=== PATIENT | male | born 1975 | race Caucasian/White ===

== ENCOUNTER 2021-01-19 08:58 | Emergency (ER) | payer BC, SELFPAY ==
[2021-01-19 09:05] VITALS: BP 120/74; PULSE 67; RESP 18; TEMP 36.8; O2SAT 98; BMI 27.9
--- NOTE | 2021-01-19 09:27 | HMH.EDUTC ---
[facility] [place] Disposition Clinical Impression: COVID-19 virus test result unknown Sciatica Qualifiers: Laterality: right Qualified Code(s): M54.31 - Sciatica, right side Disposition: Home, Self-Care Condition on Discharge: Good Instructions: DI for Sciatica, DI for Back Pain With Sciatica Additional Instructions: covid swab was sent to lab, call later today for results. self isolate until test results are known to be negative follow up with pcp if symptoms worsen or does not improve return of be seen in ed Prescriptions: predniSONE [Prednisone 20mg Tab] 20 mg PO BID #10 tab Transmission Status: Pending to [id number] Referrals: Pedro Castorena MD [Primary Care Provider] - Time of Disposition: 09:38 Medical Decision Making - Arik Inquiry Pt receiving controlled substance: No Vital Signs: 01/19/21 09:05 Temperature 98.2 F Temperature Source Oral Pulse Rate [Right Brachial] 67 Respiratory Rate 18 Blood Pressure [Right Arm] 120/74 Blood Pressure Mean [Right Arm] 89 Blood Pressure Source [Right Arm] Automatic Cuff Blood Pressure Position [Right Arm] Sitting 02 Sat by Pulse Oximetry 98 Oxygen Delivery Method Room Air Orders (Tests/Meds): ORDERS Category Date Time Status Covid-19 Nasal PCR ([facility]) Routine Lab 01/19/21 09:16 Received [facility] [place] HPI - General Chief complaint: Urgent Treatment Center Stated complaint: sciatica right side Time Seen by Provider: 01/19/21 09:34 Mode of Arrival: Ambulatory Source of Information: Patient Limitations: No Limitations Description of Symptoms (Recalled from Triage Doc. by RN): PATIENT C/O RIGHT-SIDED SCIATICA PAIN X 1 WEEK. ALSO REQUESTING COVID TEST D/T HAVING FEVER LAST NIGHT, NO KNOWN EXPOSURE HEENT Symptoms (Recalled from RN notes): No Resp Symptoms (Recalled from RN notes): No Skin Symptoms (Recalled from RN notes): No MS Symptoms (Recalled from RN notes): Yes Functional Status (Recalled from RN notes): WNL - History of Present Illness Provider Complaint: 45 yr old male presents for rt side sciatica pain that radiates doen rt leg for 1 week. pt states he has had sciatica in past. pt states he also would like a covid swab due to fever last pm. no known sick contacts. - Related Data Previous Rx's Medication Instructions Recorded predniSONE [Prednisone 20mg 20 mg PO BID #10 tab 01/19/21 Tab] Allergies Allergy/AdvReac Type Severity Reaction Status Date / Time No Known Allergies Allergy Verified 01/19/21 09:26 - Worker's Comp Is this a Worker's Comp case?: No H History - Hepatitis A Screen Drug use history?: No High risk sexual behaviors?: No History of sexually transmitted infection?: No Currently employed?: No Childcare worker?: No Do you have indoor plumbing?: Yes Do you have electricity?: Yes Attestation statement:: This patient has been screened for Hepatitis A risk factors. I have reviewed the patient's past medical history: Yes - Social History Alcohol Intake: never ROS Obtained: Yes Systems reviewed as appropriate & no additional complaints - Constitutional Constitutional: Reports system reviewed and no additional complaints, except as docu, Reports fever(s) - Eyes Eyes: Reports system reviewed and no additional complaints, except as docu, Denies dry eyes - ENT Ears, Nose, Mouth, and Throat: Reports system reviewed and no additional complaints, except as docu, Denies pain with swallowing, Denies sore throat - Cardiovascular Cardiovascular: Reports system reviewed and no additional complaints, except as docu, Denies chest pain - Respiratory Respiratory: Reports system reviewed and no additional complaints, except as docu, Denies change in phlegm color - Gastrointestinal Gastrointestingal: Reports: system reviewed and no additional complaints, except as docu. Denies: nausea - Genitourinary Male Genitourinary: Reports system reviewed and no additional complaints, except as d
[2021-01-19 09:38] VITALS: BP 120/74; PULSE 67; RESP 18; TEMP 36.8; O2SAT 98
--- NOTE | 2021-01-19 17:20 | PC.NURSE ---
pt notified of positive covid test results
== END 2021-01-19 09:42 | disposition home or self-care (01) ==
PROVIDERS: Emergency Provider Nurse Practitioner Family; PCP Family Medicine
DX: U07.1 COVID-19 (principal); M54.31 Sciatica, right side
CPT/HCPCS: 99202; G0463; U0003

== ENCOUNTER → 2021-12-23 07:07 | Outpatient (CLI) | payer BC, SELFPAY ==
[2021-12-23 09:37] LABS: Alanine Aminotransferase 25 U/L (12-78); Albumin Level 3.9 g/dl (3.5-5.0); Albumin/Globulin Ratio 1.5 (1.1-1.8); Alkaline Phosphatase 93 U/L (38-126); Anion Gap 9.4 mEq/L (5-15); Aspartate Amino Transferase 23 U/L (17-59); Bilirubin,Total 1.1 mg/dl (0.2-1.3); Blood Urea Nitrogen 15 mg/dl (9-20); Calcium 8.2 mg/dl (8.4-10.2); Carbon Dioxide 25 mmol/L (22.0-30.0); Chloride 109 mmol/L (98-107); Chol/HDL Ratio 4.1 (1-3.5); Cholesterol 143 mg/dl (140-200); Estimated Glomerular Filt Rate 65 ml/min (>60); GFR (African American) 78 ML/MIN (>60); Globulin 2.6 g/dL (1.3-3.2); Glucose 96 mg/dl (74-100); HDL Cholesterol 35 mg/dl (40-60); Potassium 4.4 mmoL/L (3.5-5.1); Sodium 139 mmol/L (136-145); Total Protein,Serum 6.5 g/dl (6.3-8.2); Triglycerides 246 mg/dl (30-150); VLDL Cholesterol 49 mg/dL (0-40)
[2021-12-23 09:49] LABS: Direct LDL Cholesterol 66.57 mg/dL (100-129)
[2021-12-23 10:08] LABS: Prostate Specific Ag Screen 0.4 ng/ml (0.0-4.0)
== END ==
PROVIDERS: PCP Family Medicine; Visit Provider Family Medicine
DX: Z00.00 Encounter for general adult medical examination without abnormal findings (principal); Z13.820 Encounter for screening for osteoporosis; Z12.5 Encounter for screening for malignant neoplasm of prostate
CPT/HCPCS: 36415; 80053; 80061; G0103

== ENCOUNTER 2022-06-13 22:27 | Day surgery (SDC) | payer BC, SELFPAY ==
[2022-06-13 22:28] VITALS: BP 120/78; PULSE 85; RESP 20; TEMP 36.8; O2SAT 98; BMI 29.4
--- NOTE | 2022-06-13 22:36 | HMH.EDGENADL ---
Discharge Plan Disposition Patient Disposition: Home, Self-Care Condition: Good Clinical Impressions Clinical Impression: Impacted esophageal foreign body Discharge ED Provider: Pako Ricketts General Adult HPI General Chief complaint: Skin/Abscess/Foreign Body Stated complaint: FB stuck in throat/chest Time Seen by Provider: 06/13/22 22:31 History of Present Illness HPI narrative: 46-year-old male with past medical history notable for prior esophageal food impaction, had EGD with foreign body removal and dilation few years ago. Presents with sensation of foreign body in the esophagus, started after having eaten chicken earlier. States he threw up and thought he removed most of it however anytime he tries to drink anything he has uncomfortable sensation and subsequent emesis. Denies any fevers, chills, abdominal pain, any other symptoms. Denies trouble breathing. Related Data Home Medications Medication Instructions Recorded Confirmed No Known Home Medications 06/13/22 06/13/22 Allergies Allergy/AdvReac Type Severity Reaction Status Date / Time No Known Allergies Allergy Verified 01/19/21 09:26 [facility] Disclaimer: The information contained in this section may have been updated after the patient was seen, as this information can be updated by other users. Social History (Updated 06/14/22 @ 00:10 by Tj Otto CRNA) Smoking Status: Current every day smoker alcohol intake: never substance use type: denies use current occupational status: unemployed Travel in the last 8 weeks: None ROS Obtained: Yes Systems reviewed as appropriate & no additional complaints except as documented Constitutional Constitutional: Reports system reviewed and no additional complaints, except as documented Eyes Eyes: Reports system reviewed and no additional complaints, except as documented ENT Ears, Nose, Mouth, and Throat: Reports system reviewed and no additional complaints, except as documented Cardiovascular Cardiovascular: Reports system reviewed and no additional complaints, except as documented Respiratory Respiratory: Reports system reviewed and no additional complaints, except as documented Gastrointestinal Gastrointestingal: Reports system reviewed and no additional complaints, except as documented Genitourinary Male Genitourinary: Reports system reviewed and no additional complaints, except as documented Musculoskeletal Musculoskeletal: Reports system reviewed and no additional complaints, except as documented Integumentary/Breasts Skin/Breast: Reports system reviewed and no additional complaints, except as documented Neurologic Neurologic: Reports system reviewed and no additional complaints, except as documented Endocrine Endocrine: Reports system reviewed and no additional complaints, except as documented Hematologic/Lymphatic Henatologic/Lymphatic: Reports system reviewed and no additional complaints, except as documented Allergic/Immunologic Allergic/Immunologic: Reports system reviewed and no additional complaints, except as documented Physical Exam General General appearance: alert and in no apparent distress Head Head exam: atraumatic, normocephalic and normal inspection Eye Eye exam: Present normal appearance, PERRL and EOMI ENT ENT exam: Present normal exam, normal oropharynx, mucous membranes moist, TM's normal bilaterally, normal external ear exam and other (Currently tolerating secretions) Neck Neck exam: Present normal inspection, full ROM and trachea midline; Absent meningismus or lymphadenopathy Chest Chest inspection: Present normal inspection and symmetric chest wall rise; Absent tenderness Respiratory Respiratory exam: Present normal lung sounds bilaterally; Absent respiratory distress Cardiovascular Cardiovascular exam: Present regular rate and normal rhythm; Absent JVD Abdominal Exam Abdominal exam: Present soft and normal bowel sounds; Absent distention, tenderness or guard
[2022-06-13 23:04] LABS: Basophils # 0.1 K/mm3 (0-0.2); Eosinophils # 0.3 K/mm3 (0.0-0.4); Hematocrit 45.7 % (42.0-52.0); Hemoglobin 15.5 g/dL (14.1-18.0); Lymphocytes # 2.2 K/mm3 (0.7-4.5); Lymphocytes % 33.2 % (10-50); Mean Corpuscular HGB Conc 33.9 g/dL (31.8-35.4); Mean Corpuscular Hemoglobin 28.4 pg (27.0-31.2); Mean Corpuscular Volume 83.9 fl (80-94); Mean Platelet Volume 7.8 fl (7.4-10.4); Monocytes # 0.3 K/mm3 (0.1-1.0); Neutrophils # 3.6 K/mm3 (1.8-7.8); Neutrophils % 54.8 % (37.0-80.0); Platelet Count 265 K/mm3 (142-424); Red Blood Count 5.45 M/mm3 (4.60-6.20); Red Cell Distribution Width 13.7 % (11.5-17.5); White Blood Count 6.5 K/mm3 (4.8-10.8)
--- NOTE | 2022-06-13 23:09 | PC.NURSE ---
Dr. Ricketts speaking with Dr. Roberts
[2022-06-13 23:10] LABS: Anion Gap 14.6 mEq/L (5-15); Blood Urea Nitrogen 17 mg/dl (9-20); Calcium 8.6 mg/dl (8.4-10.2); Carbon Dioxide 24 mmol/L (22.0-30.0); Chloride 107 mmol/L (98-107); Creatinine Clearance Estimated 99 mL/min (50-200); Estimated Glomerular Filt Rate 65 ml/min (>60); GFR (African American) 78 ML/MIN (>60); Glucose 100 mg/dl (74-100); Potassium 3.6 mmoL/L (3.5-5.1); Sodium 142 mmol/L (136-145)
--- NOTE | 2022-06-13 23:17 | PC.NURSE ---
Armando requesting sx team to come in. Team paged at [phone] Thuri call back at [phone], Kerry at 2315, and Alexus at [phone].
--- NOTE | 2022-06-13 23:42 | PC.NURSE ---
PIPE CUTTER at bedside.
--- NOTE | 2022-06-13 23:54 | EXP.GEN.HP ---
HPI HPI HPI: Patient is a 46-year-old with previous history of esophageal food impaction. He was eating chicken approximately 8 PM and has subsequently felt like it is stuck in his mid substernal area. He has been unable to swallow secretions. [facility] Disclaimer: The information contained in this section may have been updated after the patient was seen, as this information can be updated by other users. Social History Smoking Status: Current every day smoker alcohol intake: never current occupational status: unemployed Travel in the last 8 weeks: None Review of Systems *Neurologic Neurologic: Reports system reviewed and no additional complaints, except as documented Meds Home Medications and Allergies Home Medications Medication Instructions Recorded Confirmed Type No Known Home Medications 06/13/22 06/13/22 History New Prescriptions to Start Prescriptions: Allergies Allergy/AdvReac Type Severity Reaction Status Date / Time No Known Allergies Allergy Verified 01/19/21 09:26 Exam Data for Last 24 hours Vital signs and Labs for Last 24 Hours: Temp Pulse Resp BP Pulse Ox 98.2 F 85 20 120/78 98 06/13/22 22:28 06/13/22 22:28 06/13/22 22:28 06/13/22 22:28 06/13/22 22:28 Laboratory Results - last 24 hr 06/13/22 22:53: WBC 6.5, RBC 5.45, Hgb 15.5, Hct 45.7, MCV 83.9, MCH 28.4, MCHC 33.9, RDW 13.7, Plt Count 265, MPV 7.8, Neut % (Auto) 54.8, Lymph % (Auto) 33.2, [place] % (Auto) 5.0, Eos % (Auto) 5.0, Baso % (Auto) 2.0, Neut # (Auto) 3.6, Lymph # (Auto) 2.2, [place] # (Auto) 0.3, Eos # (Auto) 0.3, Baso # (Auto) 0.1 06/13/22 22:53: Sodium 142, Potassium 3.6, Chloride 107, Carbon Dioxide 24, Anion Gap 14.6, BUN 17, Creatinine 1.20, Estimated Creat Clear 99, Estimated GFR 65, Est GFR ( Amer) 78, Glucose 100, Calcium 8.6 I & O for Last 24 hours: Intake & Output 06/11/22 06/12/22 06/13/22 06/14/22 11:59 11:59 11:59 11:59 Weight 205 lb Constitutional Constitutional: no acute distress *Routine HEENT Exam Head: Present normocephalic Eye: Present EOMI ENT: Present mucous membranes moist *Routine Respiratory Exam Respiratory: Present CTA bilaterally *Routine Cardiovascular Exam Cardiovascular: Present RRR *Routine Abdominal Exam Abdominal: Present soft *Routine Rectal Exam Rectal:: deferred *Routine Genitalia Exam Genitalia:: deferred Results Results Lab Results Last 24 Hours:: Laboratory Results - last 24 hr 06/13/22 22:53: WBC 6.5, RBC 5.45, Hgb 15.5, Hct 45.7, MCV 83.9, MCH 28.4, MCHC 33.9, RDW 13.7, Plt Count 265, MPV 7.8, Neut % (Auto) 54.8, Lymph % (Auto) 33.2, [place] % (Auto) 5.0, Eos % (Auto) 5.0, Baso % (Auto) 2.0, Neut # (Auto) 3.6, Lymph # (Auto) 2.2, [place] # (Auto) 0.3, Eos # (Auto) 0.3, Baso # (Auto) 0.1 06/13/22 22:53: Sodium 142, Potassium 3.6, Chloride 107, Carbon Dioxide 24, Anion Gap 14.6, BUN 17, Creatinine 1.20, Estimated Creat Clear 99, Estimated GFR 65, Est GFR ( Amer) 78, Glucose 100, Calcium 8.6 Assessment and Plan *Assessment and plan (1) Impacted esophageal foreign body: Status: Acute Category: Medical Code(s): T18.108A - Unspecified foreign body in esophagus causing other injury, initial encounter Plan Plan for emergent endoscopy for food impaction
[2022-06-14] VITALS: BP 123/70; PULSE 78; RESP 18; TEMP 36.9; O2SAT 97
[2022-06-14 00:06] VITALS: BP 101/63; PULSE 82; RESP 20; TEMP 36.9; O2SAT 95
--- NOTE | 2022-06-14 00:07 | P.PN_ITS ---
[facility] Disclaimer: The information contained in this section may have been updated after the patient was seen, as this information can be updated by other users. Social History Smoking Status: Current every day smoker alcohol intake: never substance use type: denies use current occupational status: unemployed Travel in the last 8 weeks: None [facility] Anesthesia Checklist Patient Identification Patient Identification: Arm Band and Verbal (Name & ) Structural Data Admitted From: Emergency Dept Planned Operative Procedure/s: EGD NPO Status Verified Time NPO: 20:00 Airway Assessment C-Spine Mobility Assessed: Yes TMJ Mobility Assessed: Yes Dentition: Good Dentition Neurological Assessment Level of Consciousness: Awake Hx Seizures: No Numbness or tingling in extremities: No Anesthesia Plan Anesthesia Risk discussed: Yes Anesthesia Plan: Verified ASA Class: II (E) Anesthesia Type: MAC
--- NOTE | 2022-06-14 00:10 | HMH.SCOPE ---
Procedure: Date: 06/14/22 Patient Date of :: 1975 Procedure Performed:: Esophagogastroduodenoscopy with retrieval foreign body/food impaction Indications:: Patient is a 47-year-old male who had prior history of esophageal obstruction secondary to food impaction in 2018 requiring upper endoscopy by Dr. Figueroa. He has had some self-limited issues of dysphagia. He had been eating chicken on 06/13/2022 at approximately 8 PM at which time he had sensation that this became stuck. He was unable to swallow his secretions. Nonoperative management in the emergency department was unsuccessful and surgical consultation was obtained. Performing Provider:: Cornelio Roberts MD Referring Provider:: Stuart Castorena MD Sedation:: MAC sedation Procedure:: Patient was taken to endoscopy procedure room. He was positioned in lateral decubitus position. Adequate intravenous sedation was achieved with propofol. Please note the patient require generous amount of propofol for sedation. Olympus endoscope was inserted via the oropharynx and advanced. There was noted secretions within the esophagus which were suctioned free. Food impaction was encountered at approximately 40 cm which was shown to be the esophagogastric junction. The Fernandez net retrieval device was used to grasp with the food which was then retrieved with the endoscope in its entirety. The endoscope was then reinserted and there was no additional obstruction. There is large amount of food and liquid within the stomach. Stomach gas was then desufflated and the endoscope was withdrawn. Findings:: Esophageal obstruction secondary to food impaction of the gastroesophageal junction at 40 cm Recommendations:: Liquid diet for 24 hours then soft diet. May plan for follow-up EGD as an outpatient for biopsies and possible dilatation. Complications:: None immediately apparent Estimated blood obtained (mL): 0
[2022-06-14 00:21] VITALS: BP 102/62; PULSE 80; RESP 18; TEMP 36.9; O2SAT 97
[2022-06-14 00:36] VITALS: BP 121/71; PULSE 85; RESP 18; TEMP 36.9; O2SAT 98
== END 2022-06-14 00:05 ==
LOC: ER 06-14 00:24 → SDC 06-14 00:39
PROVIDERS: Emergency Provider Emergency Medicine; PCP Family Medicine; Visit Provider Surgery
PROC: 0DJ08ZZ Inspection of Upper Intestinal Tract, Via Natural or Artificial Opening Endoscopic (ICD-10-PCS; CPT 43235; principal; 2022-06-14 23:59)
DX: T18.128A Food in esophagus causing other injury, initial encounter (principal); Z72.0 Tobacco use
CPT/HCPCS: 43247; 80048; 85025; J1610; J2405

== ENCOUNTER 2024-06-05 20:24 | Day surgery (SDC) | payer BC, SELFPAY ==
[2024-06-05] VITALS (7 sets, daily range): BP systolic 99–121; BP diastolic 62–74; PULSE 82–90; RESP 16–17; TEMP 36.4–36.8; O2SAT 95–97; BMI 25.8
--- NOTE | 2024-06-05 20:29 | HMH.EDGENADL ---
Discharge Plan Disposition Patient Disposition: Admitted Condition: Serious Prescriptions Prescriptions: No Action No Known Home Medications Referrals Follow up/Referrals: Pedro Castorena MD [Primary Care Provider] - See instructions Clinical Impressions Clinical Impression: Impacted esophageal foreign body Instructions Patient Instructions: DI for Skin Abscess Print Language Print Language: German Discharge ED Provider: Irving Zuniga General Adult HPI <JOSIANE Poole - Last Filed: 06/05/24 20:38> General Chief complaint: Skin/Abscess/Foreign Body Stated complaint: Food stuck in throat Time Seen by Provider: 06/05/24 20:29 History of Present Illness HPI narrative: Patient presents for evaluation of impacted food bolus. Patient states that approximately an hour and a half prior to arrival he was eating roast and felt it lodged in his esophagus. He did vomit and got some a bit up but still has the bolus sensation. He is intolerant of any oral intake. He tried several methods without success. He has had this 2 previous times and required endoscopy to remove the food impaction last time was approximately 2 years ago. He denies any chest pain shortness of breath. Related Data Home Medications ?Medication ?Instructions ?Recorded ?Confirmed No Known Home Medications 06/13/22 06/13/22 Allergies Allergy/AdvReac Type Severity Reaction Status Date / Time No Known Allergies Allergy Verified 01/19/21 09:26 PFSH <JOSIANE Poole - Last Filed: 06/05/24 20:38> [facility] Disclaimer: The information contained in this section may have been updated after the patient was seen, as this information can be updated by other users. Social History (Updated 06/14/22 @ 00:10 by Manuel Gao CRNA) Smoking Status: Unknown if ever smoked alcohol intake: never substance use type: denies use current occupational status: unemployed Travel in the last 8 weeks: None Have you lived/traveled outside [place] in past 30 days?: No Contact w/someone who lives/traveled outside US past 30 days?: No Exposure to someone with infectious disease in past 14 days?: No Do you have a fever (greater than 100.4 F or 38 C)?: No Have you tested positive for COVID-19: No Exposed to someone with COVID-19 in past 14 days?: No Do you have a sore throat?: No Do you have a cough?: No Do you have any weakness?: No Do you have any diarrhea?: No Are you experiencing any unusual bleeding?: No Do you have any muscle aches/pain?: No Do you have any abdominal pain?: No Are you experiencing loss of taste or smell?: No <JOSIANE Poole - Last Filed: 06/05/24 20:38> ROS Obtained: Yes Systems reviewed as appropriate & no additional complaints except as documented Physical Exam <JOSIANE Poole - Last Filed: 06/05/24 20:38> General General appearance: alert and in no apparent distress Respiratory Respiratory exam: Present normal lung sounds bilaterally Cardiovascular Cardiovascular exam: Present regular rate Neurological Exam Neurological exam: Present alert and oriented X3 Lymphatic Lymphatic Findings: no adenopathy Medical Decision Making <JOSIANE Poole - Last Filed: 06/05/24 20:38> Medical Records Medical records reviewed: Yes I reviewed the patient's medical records. Screening: Per USPSTF and CDC recommendations, given the prevalence of disease in our region, it is our hospital?s policy to screen for HIV and viral Hepatitis for all patients aged 18 and over and those with ongoing risk factors. Arik Inquiry Pt receiving controlled substance: No Vital Signs: 06/05/24 20:25 Temperature 98.3 F Temperature Source Oral Pulse Rate [Left] 84 Respiratory Rate 16 Blood Pressure [Right Arm] 121/74 Blood Pressure Mean [Right Arm] 89 02 Sat by Pulse Oximetry 95 Oxygen Delivery Method Room Air Orders (Tests/Meds): ED MEDICATIONS Discontinued Medications Generic Name Dose Route Start Last Admin Trade Name Daija PRN Reason Stop Dose Admin Promethazine HCl 25 mg 06/05/24 20:38 06/05/24 21:05 Promethazine Hcl 25mg/Ml 1ml Vial IV 06/05/24 20:39 25 mg ONCE ONE Administration Sodium Chloride 25 ml 06/05/24 20:38 06/05/24 21:05 Sodium Chloride 0.9% 25ml Bag IV 06/05/24 20:39 25 ml ONCE ONE Administration Medical Decision Narrative: In summary patient is a 48-year-old male who presents to the emergency department for evaluation of impacted food in the esophagus. Patient is hemodynamically stable upon arrival, afebrile. Physical exam is remarkable for normal breath sounds normal heart sounds no epigastric tenderness normal bowel sounds. Differential diagnosis includes food impaction versus esophagitis however patient is intolerant of any oral intake including his own secretions. Initial workup was considered with labs and imaging however there are no red flags to suggest that this is anything other than what patient claims which is a food impaction thus deferred. Initial interventions include Phenergan. I had interactive discussion with Dr. Roberts of general surgery who is on his way in to take the patient to the endoscopy suite <Irving Zuniga MD - Last Filed: 06/05/24 21:18> Vital Signs: 06/05/24 20:25 Temperature 98.3 F Temperature Source Oral Pulse Rate [Left] 84 Respiratory Rate 16 Blood Pressure [Right Arm] 121/74 Blood Pressure Mean [Right Arm] 89 02 Sat by Pulse Oximetry 95 Oxygen Delivery Method Room Air Orders (Tests/Meds): ED MEDICATIONS Discontinued Medications Generic Name Dose Route Start Last Admin Trade Name Freq PRN Reason Stop Dose Admin Promethazine HCl 25 mg 06/05/24 20:38 06/05/24 21:05 Promethazine Hcl 25mg/Ml 1ml Vial IV 06/05/24 20:39 25 mg ONCE ONE Administration Sodium Chloride 25 ml 06/05/24 20:38 06/05/24 21:05 Sodium Chloride 0.9% 25ml Bag IV 06/05/24 20:39 25 ml ONCE ONE Administration Medical Decision Narrative: In summary patient is a 48-year-old male who presents to the emergency department for evaluation of impacted food in the esophagus. Patient is hemodynamically stable upon arrival, afebrile. Physical exam is remarkable for normal breath sounds normal heart sounds no epigastric tenderness normal bowel sounds. Differential diagnosis includes food impaction versus esophagitis however patient is intolerant of any oral intake including his own secretions. Initial workup was considered with labs and imaging however there are no red flags to suggest that this is anything other than what patient claims which is a food impaction thus deferred. Initial interventions include Phenergan. I had interactive discussion with Dr. Roberts of general surgery who is on his way in to take the patient to the endoscopy suite I was consulted by the DANG, and we discussed the complexity of the problems being addressed. I approved the treatment and management plan for this patient's care in the Emergency Department, thus performing a substantive portion of the medical decision making. Irving Zuniga MD Critical Care <JOSIANE Poole - Last Filed: 06/05/24 20:38> Critical Care Time Critical Care Time: No <Irving Zuniga MD - Last Filed: 06/05/24 21:18> Critical Care Time Critical Care Time: Yes (GI) Attestation: On 06/05/24, the high probability of a clinically significant, sudden or life threatening deterioration of the following system(s) required my full and direct attention, intervention and personal management. The time I documented below is in addition to time spent performing reported procedures but includes the following listed in this critical care notation. Total Time Total Critical Care Time: 35
[2024-06-05] MEDS: SODIUM CHLORIDE 0.9% 25ML BAG 25 ML IV (21:05)
[2024-06-05] MEDS: PROMETHAZINE HCL 25MG/ML 1ML VIAL 25 MG IV (21:05)
--- NOTE | 2024-06-05 21:18 | EXP.SURG.CON ---
History of Present Illness *Admission Date: 06/05/24 *Reason for visit:: Impacted esophageal foreign body *History of present illness: Patient is a 48-year-old male with history of reflux and previous esophageal food impaction on 11/12/2017 and 06/14/2022 requiring upper endoscopy. I had performed upper endoscopy on 06/14/[address] Figueroa had performed endoscopy on 11/12/2017. Patient states that he was in his usual state of health until around 6:20 PM on 06/05/2024 when eating roast pork he had sensation of food impaction and had been unable to swallow secretions. He presented to the emergency department. Surgical consultation was obtained. [facility] Disclaimer: The information contained in this section may have been updated after the patient was seen, as this information can be updated by other users. Social History (Updated 06/14/22 @ 00:10 by Manuel Gao CRNA) Smoking Status: Unknown if ever smoked alcohol intake: never substance use type: denies use current occupational status: unemployed Travel in the last 8 weeks: None Have you lived/traveled outside US in past 30 days?: No Contact w/someone who lives/traveled outside US past 30 days?: No Exposure to someone with infectious disease in past 14 days?: No Do you have a fever (greater than 100.4 F or 38 C)?: No Have you tested positive for COVID-19: No Exposed to someone with COVID-19 in past 14 days?: No Do you have a sore throat?: No Do you have a cough?: No Do you have any weakness?: No Do you have any diarrhea?: No Are you experiencing any unusual bleeding?: No Do you have any muscle aches/pain?: No Do you have any abdominal pain?: No Are you experiencing loss of taste or smell?: No Review of Systems Review of Systems Review of systems:: pertinent systems reviewed and negative unless documented below Meds Home Medications and Allergies Home Medications ?Medication ?Instructions ?Recorded ?Confirmed ?Type No Known Home Medications 06/13/22 06/13/22 History New Prescriptions to Start Prescriptions: Allergies Allergy/AdvReac Type Severity Reaction Status Date / Time No Known Allergies Allergy Verified 01/19/21 09:26 Exam (Inpt) Vital signs and Labs for Last 24 Hours: Temp Pulse Resp BP Pulse Ox O2 Del Method 98.3 F 84 16 121/74 95 Room Air 06/05/24 20:25 06/05/24 20:25 06/05/24 20:25 06/05/24 20:25 06/05/24 20:25 06/05/24 20:25 I & O for Labs for Last 24 Hours: Intake & Output 06/03/24 06/04/24 06/05/24 06/06/24 11:59 11:59 11:59 11:59 Weight 180 lb Constitutional: no acute distress Head: Present normocephalic Respiratory: Present CTA bilaterally Cardiac: Present Reg Rate and Rhythm Assessment and Plan *Assessment and plan (1) Impacted esophageal foreign body: Status: Acute Qualifiers: Encounter type: initial encounter Qualified Code(s): T18.108A - Unspecified foreign body in esophagus causing other injury, initial encounter Category: Medical Code(s): T18.108A - Unspecified foreign body in esophagus causing other injury, initial encounter Plan Plan to proceed with upper endoscopy with retrieval of foreign body food impaction
--- NOTE | 2024-06-05 22:07 | P.PCN_ITS ---
Procedure: Date: 06/05/24 Patient Date of :: 1975 Procedure Performed:: Esophagogastroduodenoscopy with retrieval of foreign body food impaction Indications:: Patient is a 48-year-old male who had previously required EGD for esophageal obstruction secondary to food impaction in [address] Figueroa and with me in 2022. He was eating pork roast at approximately 6:20 PM on 06/05/2024 at which time he became lodged send he had been unable to swallow secretions. He presented to the emergency department and surgical consultation was obtained. Plan was made for emergent EGD. Performing Provider:: Cornelio Roberts MD Referring Provider:: Stuart Castorena MD Sedation:: MAC sedation Procedure:: Patient history was obtained and appropriate physical examination was performed. Patient's medications and allergies were reviewed. Informed consent was obtained after explaining the benefits, alternatives, and risks of the procedure including, but not limited to, bleeding, perforation, missed lesions, and adver se reaction to anesthesia medications. Patient was transported to endoscopy procedure room. Patient was connected to monitoring devices. Throughout the procedure the patient's blood pressure, puls e, and oxygen saturations were monitored continuously. Patient identification and planned procedure were verified by the staff. Patient was positioned in lateral decubitus position. Olympus endoscope was inserted via the oropharynx. There was some cricopharyngeal spasm. There was some tortuosity to the esophagus and lack of contractility consistent with possible esophageal dysmotility. Food bolus was encountered at approximately 35 cm. Portion was retrieved with the Fernandez net as the endoscope was withdrawn. Endoscope was then reinserted. There was a moderate amount of food bolus remain ing however interestingly the endoscope was able to be advanced beyond this. There was evidence of some possible beginnings of stricture at the gastroesophageal junction at approximately 40 cm. However the endoscope was easily advanced into the stomach. It was withdrawn to the midesophagus where the residual food bolus was identified. It was grasped with a Fernandez net and withdrawn with the endoscope. Endoscope was reinserted and there was no remaining obstruction. Endoscope was withdrawn. . Findings:: Cricopharyngeal spasm Probable esophageal dysmotility Food impaction distal esophagus Gastroesophageal junction at 40 cm with possible stricture Recommendations:: Full liquid diet for 24 hours then soft diet. Recommend follow-up for EGD as an outpatient for biopsies and possible dilatation Complications:: None immediately apparent Estimated blood obtained (mL): 0 Colonoscopy Component Colonoscopy Component Was a colonoscopy performed during today's procedure?: No
--- NOTE | 2024-06-05 22:13 | EXP.ANES.CKL ---
[facility] Disclaimer: The information contained in this section may have been updated after the patient was seen, as this information can be updated by other users. Social History (Updated 06/14/22 @ 00:10 by Manuel Gao CRNA) Smoking Status: Unknown if ever smoked alcohol intake: never substance use type: denies use current occupational status: unemployed Travel in the last 8 weeks: None Have you lived/traveled outside US in past 30 days?: No Contact w/someone who lives/traveled outside US past 30 days?: No Exposure to someone with infectious disease in past 14 days?: No Do you have a fever (greater than 100.4 F or 38 C)?: No Have you tested positive for COVID-19: No Exposed to someone with COVID-19 in past 14 days?: No Do you have a sore throat?: No Do you have a cough?: No Do you have any weakness?: No Do you have any diarrhea?: No Are you experiencing any unusual bleeding?: No Do you have any muscle aches/pain?: No Do you have any abdominal pain?: No Are you experiencing loss of taste or smell?: No [facility] Anesthesia Checklist Patient Identification Patient Identification: Verbal (Name & ) Structural Data Admitted From: Emergency Dept Planned Operative Procedure/s: egd Consent for Planned Operative Procedure(s) Verified: Yes Airway Assessment Mallampati Score:: Class II C-Spine Mobility Assessed: Yes TMJ Mobility Assessed: Yes Dentition: Good Dentition Neurological Assessment Level of Consciousness: Awake, Alert and Appropriate Anesthesia Plan Anesthesia Risk discussed: Yes Anesthesia Plan: Verified ASA Class: II Anesthesia Type: MAC
== END 2024-06-05 22:40 | disposition home or self-care (01) ==
LOC: ER 21:48 → SDC 22:09
PROVIDERS: Emergency Provider Emergency Medicine; PCP Family Medicine; Visit Provider Surgery
PROC: 0DJ08ZZ Inspection of Upper Intestinal Tract, Via Natural or Artificial Opening Endoscopic (ICD-10-PCS; CPT 43247; principal; 2024-06-05 21:00)
DX: J39.2 Other diseases of pharynx (principal); K22.4 Dyskinesia of esophagus; T18.108A Unspecified foreign body in esophagus causing other injury, initial encounter
CPT/HCPCS: 43247; J2550

== ENCOUNTER 2024-10-09 19:31 | Day surgery (SDC) | payer BC, SELFPAY ==
[2024-10-09] VITALS (7 sets, daily range): BP systolic 91–124; BP diastolic 56–84; PULSE 61–90; RESP 16–20; TEMP 36.3–37.1; O2SAT 93–98; BMI 25.8
--- NOTE | 2024-10-09 19:38 | XR_ITS ---
PROCEDURE INFORMATION: Exam: XR Chest Exam date and time: 10/09/2024 7:52 PM Age: 49 years old Clinical indication: Other: Food bolus TECHNIQUE: Imaging protocol: Radiologic exam of the chest. Views: 2 views. COMPARISON: No relevant prior studies available. FINDINGS: Lungs: Unremarkable. No consolidation. Pleural spaces: Unremarkable. No pleural effusion. No pneumothorax. Heart/Mediastinum: Unremarkable. No cardiomegaly. Bones/joints: Unremarkable. IMPRESSION: No acute findings.
--- NOTE | 2024-10-09 19:53 | HMH.EDGENADL ---
Discharge Plan Disposition Patient Disposition: Xfer Other Condition: Good Prescriptions Prescriptions: No Action No Known Home Medications Referrals Follow up/Referrals: Pedro Castorena MD [Primary Care Provider] - See instructions Clinical Impressions Clinical Impression: Impacted esophageal foreign body Qualifiers: Encounter type: initial encounter Qualified Code(s): T18.108A - Unspecified foreign body in esophagus causing other injury, initial encounter Instructions Patient Instructions: DI for Diarrhea and Traveler's Diarrhea -- Adult, DI for Diarrhea and Traveler's Diarrhea -- Child, DI for Nausea -- Adult, DI for Nausea -- Child Print Language Print Language: [place] Discharge ED Provider: Tammy Alas General Adult HPI General Chief complaint: Nausea/Vomiting/Diarrhea Stated complaint: Food stuck in throat Time Seen by Provider: 10/09/24 19:35 Mode of Arrival: Ambulatory Source of Information: Patient Description of Symptoms (Recalled from ER Triage Doc. by RN): patient states he feels like he has a food bolus in his chest and can't keep liquids down since lunch time. patient states he has had this several times before and has had to have it surgically removed. History of Present Illness HPI narrative: This patient is a 49-year-old male with a history of prior food boluses presenting with globus sensation and inability to tolerate oral intake of liquids. He notes that he ate a hotdog for lunch and once he got home this afternoon, he felt globus sensation and was unable to keep any liquids down. He is try drinking cold carbonated beverages to see if he can help get it to pass, but he vomits liquids anytime he tries to drink. No other concerns or complaints noted at this time, no difficulty breathing. No significant past medical history aside from esophageal foreign body requiring removal x 4 in the past Related Data Home Medications ?Medication ?Instructions ?Recorded ?Confirmed No Known Home Medications 06/13/22 06/13/22 Allergies Allergy/AdvReac Type Severity Reaction Status Date / Time No Known Allergies Allergy Verified 01/19/21 09:26 [facility] Disclaimer: The information contained in this section may have been updated after the patient was seen, as this information can be updated by other users. Social History (Updated 06/14/22 @ 00:10 by Manuel Gao CRNA) Smoking Status: Never smoker alcohol intake: never substance use type: denies use current occupational status: unemployed Travel in the last 8 weeks?: None Have you lived/traveled outside US in past 30 days?: No Contact w/someone who lives/traveled outside US past 30 days?: No Exposure to someone with infectious disease in past 14 days?: No Do you have a fever (greater than 100.4 F or 38 C)?: No Have you tested positive for COVID-19?: No Exposed to someone with COVID-19 in past 14 days?: No Do you have a sore throat?: No Do you have a cough?: No Do you have any weakness?: No Do you have any diarrhea?: No Are you experiencing any unusual bleeding?: No Do you have any muscle aches/pain?: No Do you have any abdominal pain?: No Are you experiencing loss of taste or smell?: No ROS Obtained: Yes All systems reviewed & no additional complaints except as documented Physical Exam General General appearance: alert and in no apparent distress Head Head exam: atraumatic and normocephalic Eye Eye exam: Present normal appearance, PERRL and EOMI ENT ENT exam: Present normal exam, normal oropharynx, mucous membranes moist and normal external ear exam Neck Neck exam: Present normal inspection, full ROM and trachea midline; Absent tenderness Chest Chest inspection: Present normal inspection and symmetric chest wall rise; Absent tenderness Respiratory Respiratory exam: Present normal lung sounds bilaterally; Absent respiratory distress, wheezes, stridor or accessory muscle use Cardiovascular Cardiovascular exam: Present regular rate and normal rhythm Abdominal Exam Abdominal exam: Present soft; Absent distention, tenderness or guarding Extremities Exam Extremities exam: Present normal inspection, full ROM and normal capillary refill; Absent tenderness or edema Back Exam Back exam: Present normal inspection and full ROM; Absent tenderness Neurological Exam Neurological exam: Present alert, oriented X3, CN II-XII intact and normal gait; Absent motor sensory deficit Psychiatric Psychiatric exam: Present normal affect and normal mood Skin Skin exam: Present warm and dry Medical Decision Making Medical Records Medical records reviewed: Yes I reviewed the patient's medical records. Screening: Per USPSTF and CDC recommendations, given the prevalence of disease in our region, it is our hospital?s policy to screen for HIV and viral Hepatitis for all patients aged 18 and over and those with ongoing risk factors. Arik Inquiry Pt receiving controlled substance: No Vital Signs: 10/09/24 19:39 10/09/24 19:53 Temperature 98.8 F 98.8 F Temperature Source Oral Oral Pulse Rate 61 Pulse Rate [Left] 64 Respiratory Rate 20 18 Blood Pressure 115/76 Blood Pressure [Right Arm] 115/76 Blood Pressure Mean [Right Arm] 89 Blood Pressure Source Automatic Cuff Blood Pressure Source [Right Arm] Automatic Cuff Blood Pressure Position Sitting Blood Pressure Position [Right Arm] Sitting 02 Sat by Pulse Oximetry 96 Oxygen Delivery Method Room Air Room Air Lab Data Lab results reviewed: Yes I reviewed the patient's lab results. Orders (Tests/Meds): ORDERS Category Date Time Status Consult to General Surgery [CONS] Stat Cons 10/09/24 19:42 Ordered CXR 2 view (NOT portable) [XR chest 2V] Stat Exams 10/09/24 19:38 Taken ECG Data Tracing #1: I reviewed this ECG and interpreted as documented below: Normal sinus rhythm with a ventricular rate of [address] changes concerning for ischemia. Normal intervals ECG initial impression date: 10/09/24 ECG initial impression time: 19:57 Medical Decision Narrative: In summary, this patient is a 49-year-old male presenting to the Emergency Department for evaluation of food bolus. Differential diagnoses considered include but are not limited to food bolus, ACS, dysrhythmia, esophageal injury. Ruling out the most morbid conditions drove assessment. It should be noted patient's history includes multiple food boluses in the past which apparently has not at goal therapy. This complicates all aspects of care by increasing patient's risk for morbidity. I reviewed patient's past medical records and noted prior evaluations for food bolus in the past requiring endoscopy. On exam, the patient is sitting upright in no acute distress. He has no stridor, drooling, trismus, or increased work of breathing. Vitals are reassuring on cardiac telemetry. Workup included two-view chest x-ray as well as EKG. EKG obtained is reassuring. I independently interpreted chest x-ray prior to the radiologist read and noted no focal consolidation or pneumothorax. Please see their read for final interpretation. I called and had interactive discussion with Dr. Roberts with general surgery who advised he will take the patient to the OR for EGD for further management. Patient was transported in stable condition Critical Care Critical Care Time Critical Care Time: No
--- NOTE | 2024-10-09 19:55 | ECG_ITS ---
APPROVED REPORT Exam: Resting ECG HR:98 bpm ECG Measurements Heart Rate 98 AXES SC 158 P 53 QRSd 104 QRS -73 QT 356 T 58 QTc 411 Conclusion SINUS RHYTHM PATTERN CONSISTENT WITH PULMONARY DISEASE LEFT ANTERIOR FASCICULAR BLOCK [QRS AXIS <= -45, QR IN I, RS IN II] ABNORMAL ECG UNCONFIRMED REPORT Electronically signed by : TERRI ALEX, 10/10/2024 01:44:14
--- NOTE | 2024-10-09 19:55 | P.HP_ITS ---
HPI HPI HPI: Patient is a 49-year-old male. He has several prior episodes of foreign body/food impaction required emergent upper endoscopy. He had food impaction in 2018 requiring upper endoscopy by Dr. Figueroa. He has had some symptoms of self- limited dysphagia. I had performed emergent upper endoscopy on 06/13/2022 at approximately midnight when he required retrieval and extraction of food impaction. I had performed another upper endoscopy on 06/05/2024 after he had been eating pork. He underwent extraction of food bolus at that time as well. Patient was reportedly eating lunch (hotdog) and had developed symptoms of esophageal obstruction as previously and has been unable to swallow secretions. He presented to the emergency department. Surgical consultation was obtained. [facility] Disclaimer: The information contained in this section may have been updated after the patient was seen, as this information can be updated by other users. Social History (Updated 06/14/22 @ 00:10 by Manuel Gao CRNA) Smoking Status: Never smoker alcohol intake: never substance use type: denies use current occupational status: unemployed Travel in the last 8 weeks?: None Have you lived/traveled outside US in past 30 days?: No Contact w/someone who lives/traveled outside US past 30 days?: No Exposure to someone with infectious disease in past 14 days?: No Do you have a fever (greater than 100.4 F or 38 C)?: No Have you tested positive for COVID-19?: No Exposed to someone with COVID-19 in past 14 days?: No Do you have a sore throat?: No Do you have a cough?: No Do you have any weakness?: No Do you have any diarrhea?: No Are you experiencing any unusual bleeding?: No Do you have any muscle aches/pain?: No Do you have any abdominal pain?: No Are you experiencing loss of taste or smell?: No Meds Home Medications and Allergies Home Medications ?Medication ?Instructions ?Recorded ?Confirmed ?Type No Known Home Medications 06/13/22 06/13/22 History New Prescriptions to Start Prescriptions: Allergies Allergy/AdvReac Type Severity Reaction Status Date / Time No Known Allergies Allergy Verified 01/19/21 09:26 Exam Data for Last 24 hours Vital signs and Labs for Last 24 Hours: Temp Pulse Resp BP Pulse Ox O2 Del Method 98.8 F 61 18 115/76 96 Room Air 10/09/24 19:53 10/09/24 19:53 10/09/24 19:53 10/09/24 19:53 10/09/24 19:39 10/09/24 19:53 I & O for Last 24 hours: Intake & Output 10/07/24 10/08/24 10/09/24 10/10/24 11:59 11:59 11:59 11:59 Weight 180 lb Constitutional Constitutional: no acute distress *Routine HEENT Exam Head: Present normocephalic Eye: Present EOMI and PERRL ENT: Present mucous membranes moist *Routine Neck Exam Neck: Present supple; Absent lymphadenopathy *Routine Respiratory Exam Respiratory: Present CTA bilaterally *Routine Cardiovascular Exam Cardiovascular: Present RRR *Routine Abdominal Exam Abdominal: Present soft and normoactive bowel sounds; Absent tenderness *Routine Rectal Exam Rectal:: deferred *Routine Genitalia Exam Genitalia:: deferred *Routine Extremities Exam Extremities: Absent cyanosis, clubbing or edema *Routine Skin Exam Skin: Present warm; Absent rash *Routine Neurological Exam Neurological: Present alert and oriented X3 Assessment and Plan *Assessment and plan (1) Impacted esophageal foreign body: Status: Acute Qualifiers: Encounter type: initial encounter Qualified Code(s): T18.108A - Unspecified foreign body in esophagus causing other injury, initial encounter Category: Medical Code(s): T18.108A - Unspecified foreign body in esophagus causing other injury, initial encounter Plan Plan to proceed with emergent upper endoscopy
--- NOTE | 2024-10-09 21:04 | HMH.SCOPE ---
Procedure: Date: 10/09/24 Patient Date of :: 1975 Procedure Performed:: Esophagogastroduodenoscopy with extraction of food impaction/foreign body Indications:: Patient is 49-year-old white male whose had previous episodes of esophageal obstruction secondary to food impaction. This is occurred on 3 prior occasions. He was in his usual state of health until lunchtime at which time he was eating hot dog. He then developed symptoms consistent with esophageal obstruction and unable to swallow secretions. He presented to the emergency department. Surgical consultation was obtained. Plan was made for emergent EGD. Performing Provider:: Cornelio Roberts MD Referring Provider:: . Sedation:: MAC sedation Procedure:: Patient history was obtained and appropriate physical examination was performed. Patient's medications and allergies were reviewed. Informed consent was obtained after explaining the benefits, alternatives, and risks of the procedure including, but not limited to, bleeding, perforation, missed lesions, and adverse reaction to anesthesia medications. Patient was transported to endoscopy procedure room. Patient was connected to monitoring devices. Throughout the procedure the patient's blood pressure, pulse, and oxygen saturations were monitored continuously. Patient identification and planned procedure were verified by the staff. Patient was positioned in lateral decubitus position. Olympus endoscope was inserted via the oropharynx. Esophagus was cannulated. There were some secretions within the esophagus which were suctioned free. There is minor tortuosity to the esophagus consistent with esophageal dysmotility. Food impaction was encountered at approximately 40 cm from the incisors. This was grasped with the Fernandez net. Endoscope with the Fernandez net and food bolus were withdrawn. Endoscope was reinserted. There was no additional obstruction. There may be some mild narrowing at the gastroesophageal junction at 40 cm. Stomach was cannulated. There was a large amount of food matter and gastric liquid obscuring much of the gastric lumen. Therefore a limited gastroscopy was performed. Stomach and esophagus was then desufflated as the endoscope was withdrawn. . Findings:: Esophageal junction at the GE junction approximately 40 cm from the incisors Recommendations:: Limited liquid diet for 24 hours. Recommend follow-up as an outpatient to schedule elective endoscopy with possible dilatation. Complications:: None immediately apparent Estimated blood obtained (mL): 0 Colonoscopy Component Colonoscopy Component Was a colonoscopy performed during today's procedure?: No
== END 2024-10-09 19:53 ==
LOC: ER 20:00 → OR 10-10 12:47
PROVIDERS: Emergency Provider Emergency Medicine; PCP Family Medicine; Visit Provider Surgery
PROC: 0DJ08ZZ Inspection of Upper Intestinal Tract, Via Natural or Artificial Opening Endoscopic (ICD-10-PCS; CPT 43247; principal; 2024-10-09 21:00)
DX: R09.A2 Foreign body sensation, throat (principal); K22.2 Esophageal obstruction; T18.108A Unspecified foreign body in esophagus causing other injury, initial encounter; K22.4 Dyskinesia of esophagus
CPT/HCPCS: 43247; 71046; 93005; 99283